=== PATIENT | female | born 1990 | race Caucasian/White ===

== ENCOUNTER 2020-05-07 04:16 | Emergency (ER) | payer SELFPAY ==
[2020-05-07 04:51] LABS: Bilirubin Negative (Negative); Blood, Urine Negative (Negative); Clarity Slightly Cloudy (Clear); Glucose, Urine (Dipstick) Negative (Negative); Ketone, Urine Negative (Negative); Leukocyte Negative (Negative); Nitrite Negative (Negative); Protein, Urine (Dipstick) Negative (Neg-Trace); Specific Gravity, Urine 1.025 (1.005-1.030); Urobilinogen 0.2 mg/dL (Less than 2)
[2020-05-07 04:55] LABS: Pregnancy Test - Urine (BHCG) POSITIVE (Negative); Pregu Control Background? CLEAR/WHITE (CLR/WHITE); Pregu Control Bar Appear? YES (CONTROL BAR); Specific Gravity 1.025 (1.002-1.036)
[2020-05-07] MEDS ORDERED: Acetaminophen 500 MG TAB ONE (05:06)
[2020-05-07] MEDS ORDERED: Amoxicillin/Potassium Clav 875 MG TAB ONE (05:06)
== END 2020-05-07 05:18 | disposition home or self-care (01) ==
LOC: BURERS 04:16
DX: O99.611 Diseases of the digestive system complicating pregnancy, first trimester (principal); K64.5 Perianal venous thrombosis; O99.511 Diseases of the respiratory system complicating pregnancy, first trimester; J45.909 Unspecified asthma, uncomplicated; Z3A.01 Less than 8 weeks gestation of pregnancy
CPT/HCPCS: 81003; 81025; 99283